=== PATIENT | female | born 1955 | race Caucasian/White ===

== ENCOUNTER 2016-09-05 11:15 | Emergency (ER) | payer BC, OTHER ==
[~2016-09-05 11:15] MED LIST: HYDR25TAB PO; LISI40TAB PO; MATZ240T PO; OMEP40CA2 PO
[2016-09-05 11:17] VITALS: BP 147/80
[2016-09-05] MEDS ORDERED: VALS1TAB47 PO (11:27)
[2016-09-05] MEDS ORDERED: AMLO25TA PO (11:27)
--- NOTE | 2016-09-05 18:37 | ECGEPIP ---
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
== END 2016-09-05 12:12 | disposition home or self-care (01) ==
LOC: M ED 12:01
DX: I10 Essential (primary) hypertension (principal); E78.00 Pure hypercholesterolemia, unspecified; J44.9 Chronic obstructive pulmonary disease, unspecified; F17.200 Nicotine dependence, unspecified, uncomplicated; Z79.899 Other long term (current) drug therapy

== ENCOUNTER → 2016-09-11 | Outpatient (REF) | payer BC, OTHER ==
[~2016-09-11] MED LIST changes: +AMLO25TA PO; +VALS1TAB47 PO
[2016-09-14 14:37] LABS: SJOGREN'S ANTI SS-A <0.2 AI (0.0-0.9); SJOGREN'S ANTI SS-B <0.2 AI (0.0-0.9)
== END ==
LOC: M LAB REF 17:05
PROVIDERS: ATTEND Internal Medicine
DX: I73.00 Raynaud's syndrome without gangrene (principal)

== ENCOUNTER → 2018-04-22 | Outpatient (CLI) | payer BC, OTHER | LOC: M RAD 12:54 | DX: Z12.2 Encounter for screening for malignant neoplasm of respiratory organs (principal); R91.1 Solitary pulmonary nodule; J98.4 Other disorders of lung; F17.210 Nicotine dependence, cigarettes, uncomplicated | CPT/HCPCS: G0297 ==

== ENCOUNTER → 2018-08-27 | Outpatient (CLI) | payer BC, OTHER ==
[~2018-08-27] MED LIST changes: +LISI40TA PO; -LISI40TAB PO
--- NOTE | 2018-08-28 09:01 | REP ---
CHEST, TWO VIEWS: Two views of the chest are performed and compared to a prior study of 11/06/2014. Patient complains of cough. Mild bibasilar fibrotic change is stable. No acute infiltrate is seen. The heart is normal in size. There is calcification of the thoracic aorta. The mediastinal silhouette is unchanged. There is curvature of the lower thoracic and lumbar spine convex to the right with degenerative changes. IMPRESSION: Chronic changes are stable. No acute infiltrate. Electronically Signed by Mendoza Willis MD 08/28/2018 10:37 A
== END ==
LOC: M WUC 13:45
PROVIDERS: ATTEND Physician Assistant
DX: B34.9 Viral infection, unspecified (principal); R05 Cough; J44.1 Chronic obstructive pulmonary disease with (acute) exacerbation

== ENCOUNTER → 2019-01-19 | Outpatient (CLI) | payer BC, OTHER ==
[~2019-01-19] MED LIST changes: -VALS1TAB47 PO; +VALS1TAB67 PO
--- NOTE | 2019-01-19 10:08 | REP ---
REASON: Cough. COMPARISON: 07/30/2018 The lung trujillo are hyperexpanded status quo. There are mild fibrotic changes, particular to the lung bases, status quo. No acute patchy parenchymal opacities or pleural effusions have developed. The heart is not enlarged. There is no change in the osseous structures. IMPRESSION: Stable appearing chronic changes. Electronically Signed by Mendoza Sr DO 01/19/2019 03:28 P
== END ==
LOC: M WUC 09:04
PROVIDERS: ATTEND Physician Assistant
DX: R05 Cough (principal)

== ENCOUNTER → 2019-05-12 | Outpatient (CLI) | payer BC, OTHER ==
[~2019-05-12] MED LIST changes: -OMEP40CA2 PO; +OMEP40CA97 PO
--- NOTE | 2019-05-12 10:40 | REP ---
Clinical: Lung screening. History smoking. Comparison: 04/22/2018 Technique: Axial low-dose noncontrast images from the thoracic inlet to the upper abdomen using lung screening technique. Findings: The lung trujillo are well-aerated. The tiny noncalcified nodule in the posterior right upper lobe remains stable. The tiny calcified granuloma in the right middle lobe remains stable. The previously noted 3 mm nodule in the lingula has resolved. No consolidation, significant nodule or mass lesion is appreciated. No pleural effusion/reaction or pneumothorax. Tracheobronchial tree is patent. Mediastinum demonstrates mild atherosclerotic changes of the coronary arteries without cardiomegaly. Impression: Lung-RADS category II. No significant nodule or suspicious abnormality. Management recommendations include annual low-dose CT evaluation. Electronically Signed by Corby Juárez MD 05/12/2019 10:31 A
== END ==
LOC: M RAD 09:19
PROVIDERS: ATTEND Internal Medicine
DX: F17.211 Nicotine dependence, cigarettes, in remission (principal)

== ENCOUNTER → 2020-11-07 | Outpatient (CLI) | payer BC, OTHER ==
[~2020-11-07] MED LIST changes: +HYDR-3490 PO; -HYDR25TAB PO; -LISI40TA PO; +LISI40TA4 PO
--- NOTE | 2020-11-07 14:02 | REP ---
INDICATION: NICOTINE DEPNED. COMPARISON: Multiple latest 05/12/2019 TECHNIQUE: Axial noncontrast images from the thoracic inlet to the upper abdomen using low-dose lung screening technique (LDCT). As per the protocol only lung window images were sent to the read station for interpretation. FINDINGS: There is a new irregular and in fact somewhat spiculated 1.1 cm size nodule in the posterior segment of the right upper lobe. This is at the same level but distinctly separate from a stable 3 mm sized nodule. There are no additional abnormal nodules, masses, or opacities. Grossly, the mediastinum and pulmonary nella are unchanged. Grossly, the imaged upper abdomen and imaged osseous structures are unchanged. IMPRESSION: There is a new right upper lobe nodule as described above. According to the revised Fleischner society criteria this represents a category 4B lesion for which standard diagnostic chest CT, CT-PET and or tissue sampling may be required. <Electronically signed by Mendoza Sr > 11/07/20 0934
== END ==
LOC: M RAD 13:15
PROVIDERS: ATTEND Internal Medicine
DX: Z12.2 Encounter for screening for malignant neoplasm of respiratory organs (principal); F17.211 Nicotine dependence, cigarettes, in remission; R91.8 Other nonspecific abnormal finding of lung field

== ENCOUNTER → 2020-12-02 | Outpatient (CLI) | payer BC, OTHER ==
[~2020-12-02] MED LIST changes: +OMEP40CA4 PO; -OMEP40CA97 PO
--- NOTE | 2020-12-02 16:01 | REP ---
INDICATION: DIAGNOSING LUNG NODULE R91.1. COMPARISON: Comparison low-dose screening lung CT 07 November 2020 showed a new nodule in the right upper lobe.. TECHNIQUE: Sixty-seven minutes following the intravenous injection of a 9.01 mCi dose of F-18 FDG, three-dimensional PET scintigraphy is acquired from the skull base to the proximal thighs. Triplanar noncontrast CT scanning is acquired through the same anatomic range for attenuation correction, and image registration with scan parameters optimized to minimize radiation exposure to the patient. PET scintigraphy and CT datasets were fused and displayed on a workstation with multiplanar and projection display capability. FINDINGS: Head and neck soft tissues are unremarkable. There is no abnormal hypermetabolic uptake in the right upper lobe nodule identified on the previous CT study. Maximum SUV value is 0.74. No abnormal hypermetabolic uptake is seen within the thorax. There is a dextroconvex lumbar scoliotic curve. In the abdomen and pelvis there is normal hepatic, splenic, gastrointestinal, and genitourinary FDG accumulation. No abnormal hypermetabolic uptake is seen in the abdomen or pelvis. No abnormal skeletal uptake. IMPRESSION: Negative PET scintigraphy. No abnormal uptake in the recently identified right upper lobe nodule. This does not completely exclude low grade malignancy. Short interval CT follow-up recommended. <Electronically signed by Ghanshyam Tinajero > 12/02/20 [id number]
== END ==
LOC: M PLARAD 09:27
PROVIDERS: ATTEND Internal Medicine
DX: R91.1 Solitary pulmonary nodule (principal)
CPT/HCPCS: 78815; A9552

== ENCOUNTER → 2021-08-11 | Outpatient (CLI) | payer MEDICARE, BC, OTHER ==
[~2021-08-11] MED LIST changes: +ISOVUE-370 76% 100ML VIAL As Ordered ONE
== END ==
LOC: M RAD 08:38
PROVIDERS: ATTEND Internal Medicine
DX: R91.1 Solitary pulmonary nodule (principal)
CPT/HCPCS: 71260; Q9967

== ENCOUNTER → 2021-09-15 | Outpatient (CLI) | payer MEDICARE, BC, OTHER ==
[~2021-09-15] MED LIST changes: -ISOVUE-370 76% 100ML VIAL As Ordered ONE
== END ==
LOC: M WHC 08:05
PROVIDERS: ATTEND Internal Medicine
DX: Z12.31 Encounter for screening mammogram for malignant neoplasm of breast (principal); M85.88 Other specified disorders of bone density and structure, other site

== ENCOUNTER → 2022-10-08 | Outpatient (CLI) | payer MEDICARE, BC, OTHER | LOC: M WHC 08:34 | PROVIDERS: ATTEND Internal Medicine | DX: Z12.31 Encounter for screening mammogram for malignant neoplasm of breast (principal) ==

== ENCOUNTER → 2022-12-02 | Outpatient (CLI) | payer MEDICARE, BC, OTHER | LOC: M RAD 09:41 | PROVIDERS: ATTEND Family Medicine | DX: M67.472 Ganglion, left ankle and foot (principal); R22.42 Localized swelling, mass and lump, left lower limb ==

== ENCOUNTER → 2023-04-07 | Outpatient (CLI) | payer MEDICARE, BC, OTHER ==
[~2023-04-07] MED LIST changes: +ISOVUE-370 76% 100ML VIAL As Ordered ONE
== END ==
LOC: M RAD 14:57
PROVIDERS: ATTEND Internal Medicine
DX: R91.1 Solitary pulmonary nodule (principal); J43.2 Centrilobular emphysema
CPT/HCPCS: 71260; Q9967

== ENCOUNTER 2023-05-20 07:54 | Day surgery (SDC) | payer MEDICARE, BC, OTHER ==
[~2023-05-20] VITALS: Ht 152.4 cm; Wt 59.8 kg
[~2023-05-20 07:54] MED LIST changes: +BREO1INH INH; +CALC600C3 PO; -ISOVUE-370 76% 100ML VIAL As Ordered ONE; +LOSA50TA28 PO; +MAGN400C PO; +VITA200T6 PO; +VITA500C24 PO
[2023-05-20] MEDS ORDERED: LIDOCAINE 2% 100MG/5ML SDV (FOR ANES.) As Ordered ONE (09:06)
[2023-05-20] MEDS ORDERED: propofoL 500 MG/50 ML VIAL As Ordered ONE (09:06)
[2023-05-20] MEDS ORDERED: ePHEDrine SULFATE 25 MG/5 ML(5MG/ML) SYRINGE As Ordered ONE (09:22)
[2023-05-20 09:41] VITALS: TEMP 97.1
[2023-05-20 09:50] VITALS: BP 101/67; O2SAT 93
== END 2023-05-20 10:00 | disposition home or self-care (01) ==
LOC: M OPP 07:54
PROVIDERS: ATTEND Surgery
DX: Z12.11 Encounter for screening for malignant neoplasm of colon (principal); Z86.010 Personal history of colon polyps; K57.30 Diverticulosis of large intestine without perforation or abscess without bleeding; K63.5 Polyp of colon; Z87.891 Personal history of nicotine dependence; Z79.51 Long term (current) use of inhaled steroids; Z79.899 Other long term (current) drug therapy

== ENCOUNTER → 2023-10-15 | Outpatient (CLI) | payer MEDICARE, BC | LOC: M WHC 08:28 | PROVIDERS: ATTEND Internal Medicine | DX: Z12.31 Encounter for screening mammogram for malignant neoplasm of breast (principal) ==

== ENCOUNTER → 2024-04-10 | Outpatient (CLI) | payer MEDICARE, BC ==
[~2024-04-10] MED LIST changes: +ISOVUE-370 76% 100ML VIAL As Ordered ONE
== END ==
LOC: M RAD 07:25
PROVIDERS: ATTEND Internal Medicine
DX: R05.3 Chronic cough (principal); R91.8 Other nonspecific abnormal finding of lung field; K76.0 Fatty (change of) liver, not elsewhere classified
CPT/HCPCS: 71260; Q9967

== ENCOUNTER → 2024-04-26 | Outpatient (CLI) | payer MEDICARE, BC ==
[~2024-04-26] MED LIST changes: -ISOVUE-370 76% 100ML VIAL As Ordered ONE
== END ==
LOC: M WUC 12:53
PROVIDERS: ATTEND Student in an Organized Health Care Education/Training Program
DX: M25.521 Pain in right elbow (principal); M79.641 Pain in right hand; M79.89 Other specified soft tissue disorders; S62.511A Displaced fracture of proximal phalanx of right thumb, initial encounter for closed fracture; X58.XXXA Exposure to other specified factors, initial encounter; Y92.9 Unspecified place or not applicable; Y93.9 Activity, unspecified; Y99.9 Unspecified external cause status; M19.041 Primary osteoarthritis, right hand

== ENCOUNTER → 2024-09-15 | Outpatient (REF) | payer MEDICARE, OTHER ==
[2024-09-15 13:23] LABS: RSV AMPLIFICATION NEGATIVE (NEGATIVE)
== END ==
LOC: M LAB REF 11:54
PROVIDERS: ATTEND Internal Medicine
DX: J96.01 Acute respiratory failure with hypoxia (principal); J44.1 Chronic obstructive pulmonary disease with (acute) exacerbation

== ENCOUNTER → 2024-09-15 | Outpatient (CLI) | payer MEDICARE, BC | LOC: M WUC 11:03 | PROVIDERS: ATTEND Internal Medicine | DX: R91.8 Other nonspecific abnormal finding of lung field (principal); R06.02 Shortness of breath; J96.01 Acute respiratory failure with hypoxia; J44.1 Chronic obstructive pulmonary disease with (acute) exacerbation ==

== ENCOUNTER → 2024-09-28 | Outpatient (CLI) | payer MEDICARE, OTHER | LOC: M WUC 12:41 | PROVIDERS: ATTEND Internal Medicine | DX: R91.8 Other nonspecific abnormal finding of lung field (principal) ==

== ENCOUNTER → 2024-10-18 | Outpatient (CLI) | payer MEDICARE, BC ==
[~2024-10-18] MED LIST changes: +ISOVUE-370 76% 100ML VIAL ONE
== END ==
LOC: M PLAIMG 10:24
PROVIDERS: ATTEND Internal Medicine
DX: J96.01 Acute respiratory failure with hypoxia (principal); R91.8 Other nonspecific abnormal finding of lung field
CPT/HCPCS: 71260; Q9967

== ENCOUNTER → 2024-12-12 | Outpatient (CLI) | payer MEDICARE, BC ==
[~2024-12-12] MED LIST changes: -ISOVUE-370 76% 100ML VIAL ONE; +LISI40TA10 PO; -LISI40TA4 PO
== END ==
LOC: M WHC 08:28
PROVIDERS: ATTEND Internal Medicine
DX: Z12.31 Encounter for screening mammogram for malignant neoplasm of breast (principal)